=== PATIENT | male | born 1980 | race Caucasian/White ===

== ENCOUNTER 2016-11-11 14:06 | Emergency (ER) | payer SELFPAY ==
[~2016-11-11] VITALS: Ht 175.3 cm; Wt 71.7 kg
--- NOTE | 2016-11-11 14:10 | NUR ---
IV ACCESSED TO [facility]. BLOOD SAMPLE SENT TO [facility]
--- NOTE | 2016-11-11 14:24 | NUR ---
PRESENTS SELF TO ED DUE TO "FEELS A SKIPPED HEARTBEAT X 3 DAYS. PATIENT IS AA04, APPEARS IN NO APPARENT DISTRESS, RESPIRATION EVEN AND UNABORED. SKIN IS WARM TO TOUCH AND NON DIAPHORETIC. AFEBRILE. NO SOB. GOWNED PT AND PLACED ON TELE MONITOR. VSS
--- NOTE | 2016-11-11 14:24 | NUR ---
MD SMITH AT
[2016-11-11 15:11] LABS: BASOPHILS % (AUTO) 0.6 % (0.0-2.0); EOSINOPHILS # (AUTO) 0.2 /CMM (0.0-0.7); EOSINOPHILS % (AUTO) 2.2 % (0.0-6.0); HEMATOCRIT 51 % (39-51); HEMOGLOBIN 17.2 g/dL (13.5-17.5); LYMPHOCYTES % (AUTO) 28.8 % (20.0-44.0); MEAN CORPUSCULAR HEMOGLOBIN 30 PG (26.0-33.0); MEAN CORPUSCULAR HGB CONC 34 g/dl (31.0-36.0); MEAN CORPUSCULAR VOLUME 87 fL (80-96); MONOCYTES # (AUTO) 0.6 /CMM (0.1-1.30); MONOCYTES % (AUTO) 8.2 % (2.0-12.0); NEUTROPHILS # (AUTO) 4.3 /CMM (1.8-8.9); NEUTROPHILS % (AUTO) 60.2 % (43.0-81.0); PLATELET COUNT (AUTO) 251 /CMM (150-450); RDW COEFFICIENT OF VARIATION 12.2 (11.5-15.0); RED BLOOD CELL COUNT(AUTO) 5.82 MIL/uL (4.5-6.0); WHITE BLOOD COUNT (AUTO) 7.1 K/uL (4.3-11.0)
[2016-11-11 15:20] LABS: CARBON DIOXIDE 30 mmol/L (21-32); CHLORIDE 105 mmol/L (98-107); CREATININE 0.9 mg/dL (0.6-1.3); GFR 95 mL/min (>60); GLUCOSE 112 mg/dL (74-106); POTASSIUM 3.9 mmol/L (3.5-5.1); SODIUM SERUM 141 mmol/L (136-145); UREA NITROGEN, BLOOD 17 mg/dL (7-18)
[2016-11-11 15:24] LABS: INR 0.95 (0.87-1.13); PROTHROMBIN TIME 9.9 SECS (9.5-12.7)
[2016-11-11 15:42] LABS: TROPONIN I < 0.017 ng/mL (0.00-0.056)
[2016-11-11 15:43] LABS: ALCOHOL, BLOOD < 3 mg/dL (0-0)
[2016-11-11 16:01] LABS: CANNABINOID, URINE NEGATIVE (NEGATIVE); PHENCYCLIDINE SCREEN,URINE NEGATIVE (NEGATIVE)
[2016-11-11 16:47] VITALS: BP 120/80
--- NOTE | 2016-11-11 16:48 | NUR ---
Patient discharged to home in stable condition. Written and verbal after care instructions given. Patient verbalizes understanding of instruction.IV removed. Catheter intact and site benign. Pressure and 4x4 applied to site. No bleeding noted.
== END 2016-11-11 16:49 | disposition home or self-care (01) ==
LOC: ER 14:09
DX: R00.2 Palpitations (principal); R79.1 Abnormal coagulation profile
CPT/HCPCS: 36415; 71010-TC; 80048-TC; 80305; 84443-TC; 84484-TC; 85025-TC; 85730-TC; A4606; G0480; Z7610

== ENCOUNTER 2019-12-03 12:15 | Emergency (ER) | payer SELFPAY ==
[~2019-12-03] VITALS: Ht 175.3 cm; Wt 80.7 kg
--- NOTE | 2019-12-03 12:15 | NUR ---
PT BIB SELF C/O RUQ PAIN AGGRAVATED BY TWISTING HIS BODY X 3 DAYS, PT IS AAOX3, NOT IN RESPIRATORY DISTRESS, V/S STABLE, KEPT RESTED AND COMFORTABLE, WILL CONTINUE TO MONITOR.
--- NOTE | 2019-12-03 12:20 | NUR ---
URINE SPECIMEN COLLECTED AND SENT TO LAB.
--- NOTE | 2019-12-03 12:34 | NUR ---
PT SEEN AND EXAMINED BY .
--- NOTE | 2019-12-03 12:42 | NUR ---
ER PHLEB AT BEDSIDE FOR BLOOD DRAW.
[2019-12-03 12:55] LABS: BASOPHILS # (AUTO) 0.1 /CMM (0.0-0.2); EOSINOPHILS % (AUTO) 1.3 % (0.0-6.0); HEMATOCRIT 48 % (39-51); HEMOGLOBIN 16.1 g/dL (13.5-17.5); LYMPHOCYTES # (AUTO) 1.2 /CMM (0.8-4.8); MEAN CORPUSCULAR HGB CONC 34 g/dl (31.0-36.0); MEAN CORPUSCULAR VOLUME 89 fL (80-96); MONOCYTES # (AUTO) 0.5 /CMM (0.1-1.30); MONOCYTES % (AUTO) 8.6 % (2.0-12.0); NEUTROPHILS # (AUTO) 3.8 /CMM (1.8-8.9); NEUTROPHILS % (AUTO) 67.1 % (43.0-81.0); PLATELET COUNT (AUTO) 211 /CMM (150-450); RED BLOOD CELL COUNT(AUTO) 5.42 MIL/uL (4.5-6.0); WHITE BLOOD COUNT (AUTO) 5.6 K/uL (4.3-11.0)
[2019-12-03 12:56] LABS: APPEARANCE,URINE Clear (CLEAR); BILIRUBIN,URINE Negative (NEGATIVE); BLOOD, URINE Negative Ery/uL (NEGATIVE); COLOR,URINE Yellow (YELLOW); KETONES,URINE Negative (NEGATIVE); LEUKOCYTE ESTERASE ,URINE Negative (NEGATIVE); NITRITE, URINE Negative (NEGATIVE); PH,URINE 6.5 (5.0-8.0); PROTEIN,URINE Negative (NEGATIVE); UGLUCOSE Negative (NEGATIVE)
[2019-12-03 13:00] LABS: CALCIUM, SERUM 8.8 mg/dL (8.5-10.1); CREATININE 1.1 mg/dL (0.6-1.3); POTASSIUM 3.7 mmol/L (3.5-5.1)
[2019-12-03 13:06] LABS: ALBUMIN 4.2 g/dL (3.4-5.0); BILIRUBIN,DIRECT 0.2 mg/dL (0.0-0.2); BILIRUBIN,TOTAL 0.8 mg/dL (0.2-1.0); TOTAL PROTEIN, SERUM 7.4 g/dL (6.4-8.2)
--- NOTE | 2019-12-03 13:15 | NUR ---
TECH AT BEDSIDE FOR US GALLBLADDER.
[2019-12-03 13:24] LABS: RBC,URINE 0-2 /HPF (0-2); WBC,URINE 0-2 /HPF (0-3)
[2019-12-03 13:25] LABS: BACTERIA,URINE None seen /HPF (None Seen); MUCUS,URINE Many /LPF (None Seen); SQUAMOUS EPITHELIAL CELL,UR Few /HPF (None Seen)
--- NOTE | 2019-12-03 14:09 | NUR ---
Patient discharged to home in stable condition. Written and verbal after care instructions given. Patient verbalizes understanding of instruction.
[2019-12-03 14:10] VITALS: BP 121/74
== END 2019-12-03 14:10 | disposition home or self-care (01) ==
LOC: ER 12:19
DX: R10.11 Right upper quadrant pain (principal)
CPT/HCPCS: 36415; 76705-TC; 80048-TC; 80076-TC; 81000-TC; 83690-TC; 85025-TC

== ENCOUNTER 2020-11-13 19:33 | Emergency (ER) | payer BC, MEDICAID ==
[~2020-11-13] VITALS: Ht 165.1 cm; Wt 76.7 kg
[2020-11-13 20:22] LABS: BASOPHILS % (AUTO) 0.6 % (0.0-2.0); EOSINOPHILS % (AUTO) 2.7 % (0.0-6.0); HEMATOCRIT 45 % (39-51); HEMOGLOBIN 15.1 g/dL (13.5-17.5); LYMPHOCYTES # (AUTO) 1.8 /CMM (0.8-4.8); LYMPHOCYTES % (AUTO) 27.3 % (20.0-44.0); MEAN CORPUSCULAR HGB CONC 34 g/dl (31.0-36.0); MEAN CORPUSCULAR VOLUME 88 fL (80-96); MONOCYTES # (AUTO) 0.6 /CMM (0.1-1.30); MONOCYTES % (AUTO) 8.9 % (2.0-12.0); NEUTROPHILS # (AUTO) 4.1 /CMM (1.8-8.9); NEUTROPHILS % (AUTO) 60.5 % (43.0-81.0); PLATELET COUNT (AUTO) 224 /CMM (150-450); RED BLOOD CELL COUNT(AUTO) 5.05 MIL/uL (4.5-6.0); WHITE BLOOD COUNT (AUTO) 6.7 K/uL (4.3-11.0)
[2020-11-13 20:31] LABS: CALCIUM, SERUM 8.7 mg/dL (8.5-10.1); CARBON DIOXIDE 26 mmol/L (21-32); CHLORIDE 103 mmol/L (98-107); CREATININE 0.9 mg/dL (0.6-1.3); GLUCOSE 110 mg/dL (74-106); POTASSIUM 3.4 mmol/L (3.5-5.1); SODIUM SERUM 140 mmol/L (136-145); UREA NITROGEN, BLOOD 19 mg/dL (7-18)
[2020-11-13 20:39] LABS: ALANINE AMINOTRANSFERASE 99 U/L (12-78); ALKALINE PHOSPHATASE 68 U/L (46-116); ASPARTATE AMINOTRANSFERASE 30 U/L (15-37); BILIRUBIN,DIRECT 0.1 mg/dL (0.0-0.2); BILIRUBIN,TOTAL 0.4 mg/dL (0.2-1.0); TOTAL PROTEIN, SERUM 7.6 g/dL (6.4-8.2)
[2020-11-13] MEDS ORDERED: IBUP-1955 PO (20:58)
--- NOTE | 2020-11-13 21:04 | NUR ---
Patient discharged to home in stable condition. Written and verbal after care instructions given. Patient verbalizes understanding of instruction and RX. Pt ambulated out of ED. VSS.
--- NOTE | 2020-11-13 21:04 | NUR ---
IV removed. Catheter intact and site benign. Pressure and 4x4 applied to site. No bleeding noted.
[2020-11-13 21:40] VITALS: BP 124/79
== END 2020-11-13 21:00 | disposition home or self-care (01) ==
LOC: ER 19:40
DX: R07.89 Other chest pain (principal)
CPT/HCPCS: 36415; 71045-TC; 80048-TC; 80076-TC; 83690-TC; 84484-TC; 85025-TC

== ENCOUNTER 2021-07-31 21:49 | Emergency (ER) | payer BC ==
[~2021-07-31] VITALS: Ht 175.3 cm; Wt 76.2 kg
[~2021-07-31 21:49] MED LIST: IBUP-1955 PO
[2021-07-31] MEDS ORDERED: IBUPROFEN 400 MG TABLET PO ONE (22:30)
--- NOTE | 2021-07-31 22:30 | NUR ---
patient c/o left shoulder pain/ burning. is concerned and anxious if it is just anerve or heart condition. placed on monitor. to bed 4.
--- NOTE | 2021-07-31 22:32 | NUR ---
ekg at bedside
[2021-07-31] MEDS ORDERED: IBUPROFEN 400 MG TABLET ONE (22:35)
--- NOTE | 2021-07-31 22:42 | NUR ---
phlebotimist at bedside
--- NOTE | 2021-07-31 22:42 | NUR ---
PAINT STOCKMAN AT PT'S BEDSIDE
--- NOTE | 2021-07-31 22:51 | NUR ---
patient refused motrin 800mg at this time, states no pain more burning sensation. patient also refused 02 to be placed as ordered.
[2021-07-31 22:56] LABS: BASOPHILS # (AUTO) 0.1 K/uL (0.0-0.2); BASOPHILS % (AUTO) 0.8 % (0.0-2.0); EOSINOPHILS % (AUTO) 5.3 % (0.0-6.0); HEMATOCRIT 47 % (39-51); HEMOGLOBIN 15.7 g/dL (13.5-17.5); LYMPHOCYTES # (AUTO) 2.3 K/uL (0.8-4.8); LYMPHOCYTES % (AUTO) 28.9 % (20.0-44.0); MEAN CORPUSCULAR HGB CONC 34 g/dl (31.0-36.0); MEAN CORPUSCULAR VOLUME 90 fL (80-96); MONOCYTES # (AUTO) 0.8 K/uL (0.1-1.30); MONOCYTES % (AUTO) 9.7 % (2.0-12.0); NEUTROPHILS # (AUTO) 4.4 K/uL (1.8-8.9); NEUTROPHILS % (AUTO) 55.3 % (43.0-81.0); PLATELET COUNT (AUTO) 233 K/uL (150-450); RED BLOOD CELL COUNT(AUTO) 5.22 MIL/uL (4.5-6.0); WHITE BLOOD COUNT (AUTO) 7.9 K/uL (4.3-11.0)
--- NOTE | 2021-07-31 23:05 | NUR ---
xray at bedside
[2021-07-31 23:24] LABS: D-DIMER 0.26 mg/L(FEU (0.17-0.50)
[2021-07-31 23:26] LABS: CALCIUM, SERUM 9.2 mg/dL (8.5-10.1); CARBON DIOXIDE 28 mmol/L (21-32); CHLORIDE 104 mmol/L (98-107); GLUCOSE 102 mg/dL (74-106); POTASSIUM 3.6 mmol/L (3.5-5.1); SODIUM SERUM 140 mmol/L (136-145); UREA NITROGEN, BLOOD 22 mg/dL (7-18)
[2021-07-31 23:31] LABS: ALANINE AMINOTRANSFERASE 117 U/L (12-78); ALBUMIN 4.2 g/dL (3.4-5.0); ALKALINE PHOSPHATASE 70 U/L (46-116); ASPARTATE AMINOTRANSFERASE 30 U/L (15-37); BILIRUBIN,DIRECT 0.1 mg/dL (0.0-0.2); BILIRUBIN,TOTAL 0.4 mg/dL (0.2-1.0); TOTAL PROTEIN, SERUM 7.8 g/dL (6.4-8.2)
[2021-07-31] MEDS ORDERED: PRED50TA PO (23:33)
[2021-07-31] MEDS ORDERED: CARI350T PO (23:33)
[2021-07-31] MEDS ORDERED: IBUP-1957 PO (23:33)
[2021-07-31 23:48] VITALS: BP 141/73
--- NOTE | 2021-07-31 23:48 | NUR ---
Patient discharged to home in stable condition. Written and verbal after care instructions given. Patient verbalizes understanding of instruction.
== END 2021-07-31 23:49 | disposition home or self-care (01) ==
LOC: ER 22:04
DX: M54.12 Radiculopathy, cervical region (principal); M70.912 Unspecified soft tissue disorder related to use, overuse and pressure, left shoulder; Z79.899 Other long term (current) drug therapy
CPT/HCPCS: 36415; 71045-TC; 73030-TC; 80048-TC; 80076-TC; 84484-TC; 85025-TC; 85378-TC; 85730-TC

== ENCOUNTER 2024-07-29 10:37 | Emergency (ER) | payer BC ==
[~2024-07-29] VITALS: Ht 170.2 cm; Wt 74.8 kg
[~2024-07-29 10:37] MED LIST changes: +CARI350T PO; +IBUP-1957 PO; +PRED50TA PO
[2024-07-29 11:48] LABS: BASOPHILS % (AUTO) 0.2 % (0.0-2.0); EOSINOPHILS # (AUTO) 0.2 K/uL (0.0-0.7); EOSINOPHILS % (AUTO) 2.5 % (0.0-6.0); HEMATOCRIT 40 % (39-51); HEMOGLOBIN 13.6 g/dL (13.5-17.5); LYMPHOCYTES # (AUTO) 1.2 K/uL (0.8-4.8); LYMPHOCYTES % (AUTO) 15.8 % (20.0-44.0); MEAN CORPUSCULAR HEMOGLOBIN 29 PG (26.0-33.0); MEAN CORPUSCULAR HGB CONC 34 g/dl (31.0-36.0); MEAN CORPUSCULAR VOLUME 85 fL (80-96); MONOCYTES # (AUTO) 0.9 K/uL (0.1-1.30); MONOCYTES % (AUTO) 12.4 % (2.0-12.0); NEUTROPHILS # (AUTO) 5.2 K/uL (1.8-8.9); NEUTROPHILS % (AUTO) 69.1 % (43.0-81.0); PLATELET COUNT (AUTO) 357 K/uL (150-450); RED BLOOD CELL COUNT(AUTO) 4.68 MIL/uL (4.5-6.0); RED CELL DISTRIBUTION WIDTH 12.7 % (11.5-15.0); WHITE BLOOD COUNT (AUTO) 7.5 K/uL (4.3-11.0)
[2024-07-29 12:01] LABS: ALBUMIN 3.2 g/dL (3.4-5.0); BILIRUBIN,TOTAL 0.7 mg/dL (0.2-1.0); CALCIUM, SERUM 9.6 mg/dL (8.5-10.1); POTASSIUM 3.7 mmol/L (3.5-5.1); TOTAL PROTEIN, SERUM 7.9 g/dL (6.4-8.2)
[2024-07-29 12:04] LABS: LACTIC ACID 1.8 mmol/L (0.4-2.0)
[2024-07-29 15:15] LABS: MONOTEST NEGATIVE (NEGATIVE)
[2024-07-29 15:18] VITALS: BP 128/89; TEMP 97.9; O2SAT 99
[2024-07-31 05:07] LABS: HBSAG SCREEN Negative (Negative); HEPATITIS A AB, IgM Negative (Negative); HEPATITIS B CORE AB, IgM Negative (Negative)
== END 2024-07-29 15:18 | disposition home or self-care (01) ==
LOC: ER 10:44
DX: R74.01 Elevation of levels of liver transaminase levels (principal); R50.9 Fever, unspecified; R05.9 Cough, unspecified; Z79.1 Long term (current) use of non-steroidal anti-inflammatories (NSAID); Z79.52 Long term (current) use of systemic steroids
CPT/HCPCS: 36415; 71045-TC; 76705-TC; 80053-TC; 83605-TC; 84443-TC; 85025-TC; 86308-TC; 87040-TC